=== PATIENT | female | born 1970 | race Caucasian/White ===

== ENCOUNTER 2019-03-09 16:48 | Emergency (ER) | payer BC, OTHER ==
[~2019-03-09] VITALS: Ht 165.1 cm; Wt 63.5 kg
[~2019-03-09 16:48] MED LIST: ALPR1TAB2 PO; HYDR-1179 PO
--- NOTE | 2019-03-09 17:12 | PHYS DOC ---
Past History Past Medical History: No Pertinent History Past Surgical History: Other Smoking: Quit Greater Than 1 Year Alcohol Use: Occasionally Drug Use: None Adult General Chief Complaint Chief Complaint: COUGH HPI HPI Patient is a 48-year-old female who presented to ER today for evaluation of productive cough with yellow sputum for about 3 days. She also complaint of fever and chill. Patient had NO trouble breathing. Patient IS patient is not a smoker. She had Coughing so much that she could not sleep last night. Patient denies any abdominal pain, no nausea vomiting. aLL OTHER ros IS NEGATIVE UNLESS OTHERWISE NOTED IN hpi Review of Systems Review of Systems See above Allergies Allergies Allergies Coded Allergies Type Severity Reaction Last Updated Verified adhesive Allergy Intermediate 10/04/14 Yes sulfamethoxazole Allergy Intermediate Hives 10/04/14 Yes trimethoprim Allergy Intermediate Hives 10/04/14 Yes Physical Exam Physical Exam See above Constitutional: Well developed, well nourished, no acute distress, non-toxic appearance. [] HENT: Normocephalic, atraumatic, bilateral external ears normal, oropharynx moist, no oral exudates, nose normal. [] Eyes: PERRLA, EOMI, conjunctiva normal, no discharge. [] Neck: Normal range of motion, no tenderness, supple, no stridor. [] Cardiovascular:Heart rate regular rhythm, no murmur [] Lungs & Thorax: Bilateral breath sounds clear to auscultation [] Abdomen: Bowel sounds normal, soft, no tenderness, no masses, no pulsatile masses. [] Skin: Warm, dry, no erythema, no rash. [] Back: No tenderness, no CVA tenderness. [] Extremities: No tenderness, no cyanosis, no clubbing, ROM intact, no edema. [] Neurologic: Alert and oriented X 3, normal motor function, normal sensory function, no focal deficits noted. [] Psychologic: Affect normal, judgement normal, mood normal. [] EKG EKG [] Radiology/Procedures Radiology/Procedures [][address] [address] IMAGING REPORT Signed PATIENT: HARRISON COOK ACCOUNT: [id number] : 1970 LOCATION: ER AGE: 48 SEX: F EXAM STATUS: REG ER ORD. PHYSICIAN: MONSE DOUGHERTY DO REASON: COUGH FOR 3 DAYS PROCEDURE: CHEST PA & LATERAL Chest radiograph 03/09/2019 5:06 PM INDICATION: Cough for 3 days COMPARISON: 10/04/2014 TECHNIQUE: Frontal and lateral views of the chest are provided. FINDINGS: The cardiomediastinal silhouette is within normal limits. There are no pleural effusions. There is no pulmonary vascular congestion. There is no pneumothorax. The lungs are clear. No significant osseous abnormality is identified. IMPRESSION: No acute cardiopulmonary process. Electronically signed by: Klever Aparicio MD (03/09/2019 5:20 PM) [id number] DICTATED AND SIGNED BY: KLEVER APARICIO MD DATE: 03/09/191719 CC: MONSE DOUGHERTY DO; LORENA LOYA MD ~ Course & Med Decision Making Course & Med Decision Making Pertinent Labs and Imaging studies reviewed. (See chart for details) [] Dragon Disclaimer Dragon Disclaimer This electronic medical record was generated, in whole or in part, using a voice recognition dictation system. Departure Departure: Impression: Primary Impression: Acute bronchitis Disposition: HOME, SELF-CARE Condition: STABLE Referrals: LORENA LOYA MD (PCP) please follow up with your doctor on Wednesday for reevaluation. Patient Instructions: Acute Bronchitis Scripts Albuterol Sulfate (PROAIR HFA INHALER) 8.5 Gm Hfa.aer.ad 2 PUFF IH PRN Q4-6HRS PRN for wheezing for 21 Days, #1 INHALER 0 Refills Prov: MONSE DOUGHERTY DO 03/09/19 Azithromycin (ZITHROMAX) 250 Mg Tablet 1 PKG PO UD for bronchitis, #6 TAB Prov: MONSE DOUGHERTY DO 03/09/19 Promethazine HCl/Codeine (Prometh-Codein 6.25-10 mg/5 ml) 5 Ml Syrup 5 ML PO PRN Q4-6HRS PRN for cough MDD 30 Milliliter(s), #120 ML 0 Refills Prov: MONSE DOUGHERTY DO 03/09/19 Prednisone (PREDNISONE) 20 Mg Tablet 1 TAB PO DAILY for bronchitis for 10 Days, #10 TAB Prov: MONSE DOUGHERTY DO 03/09/19 MONSE DOUGHERTY DO Mar 09, 2019 17:12
--- NOTE | 2019-03-09 17:23 | RAD ---
Chest radiograph 03/09/2019 5:06 PM INDICATION: Cough for 3 days COMPARISON: 10/04/2014 TECHNIQUE: Frontal and lateral views of the chest are provided. FINDINGS: The cardiomediastinal silhouette is within normal limits. There are no pleural effusions. There is no pulmonary vascular congestion. There is no pneumothorax. The lungs are clear. No significant osseous abnormality is identified. IMPRESSION: No acute cardiopulmonary process. Electronically signed by: Tyesha Nick MD (03/09/2019 5:20 PM) [id number]
[2019-03-09] MEDS ORDERED: methylPREDNISolone SOD SUCC PF 125 MG/2 ML VIAL. IM ONE (17:45)
[2019-03-09] MEDS ORDERED: ONDANSETRON ODT 4 MG TAB.RAPDIS PO ONE (17:45)
[2019-03-09] MEDS ORDERED: HYDROcodone/APAP 5/325MG 1 TAB TABLET PO ONE (17:45)
[2019-03-09] MEDS ORDERED: IPRATRPIUM/ALBUTEROL 0.5/2.5MG 3 ML NEBU. NEB ONE (17:45)
[2019-03-09] MEDS ORDERED: PRED20TA PO (17:55)
[2019-03-09] MEDS ORDERED: AZIT250T PO (17:55)
[2019-03-09] MEDS ORDERED: PROM5SYR2 PO (17:55)
[2019-03-09] MEDS ORDERED: ALBU2.5V8 IH (17:55)
[2019-03-09 18:17] VITALS: BP 128/68
== END 2019-03-09 18:17 | disposition home or self-care (01) ==
LOC: ER 16:48
DX: J20.9 Acute bronchitis, unspecified (principal); Z87.891 Personal history of nicotine dependence; Z88.8 Allergy status to other drugs, medicaments and biological substances; Z88.1 Allergy status to other antibiotic agents; Z88.2 Allergy status to sulfonamides
CPT/HCPCS: 71046; 94640; 96372; 99284; J2930; J7620; Q0162

== ENCOUNTER 2019-04-07 17:58 | Emergency (ER) | payer OTHER, BC ==
[~2019-04-07] VITALS: Ht 165.1 cm; Wt 80.0 kg
[~2019-04-07 17:58] MED LIST changes: +ALBU2.5V8 IH; +AZIT250T PO; +PRED20TA PO; +PROM5SYR2 PO
[2019-04-07] MEDS ORDERED: HYDROcodone/APAP 5/325MG 1 TAB TABLET PO ONE (18:45)
--- NOTE | 2019-04-07 18:46 | RAD ---
EXAM: Sacrum coccyx DATE: 04/07/2019 6:12 PM COMPARISON: No prior INDICATION: Pain s/p fall FINDINGS: Dedicated AP and lateral views of the sacrum/coccyx are negative for acute or subacute fracture. Negative sacro-coccygeal dissociation. Negative SI joint diastasis or degenerative/proliferative changes. Grossly normal bone density. IMPRESSION: Normal dedicated views sacrum and coccyx. Electronically signed by: Omid Paula MD (04/07/2019 6:43 PM) [facility]
[2019-04-07 18:51] VITALS: BP 134/87
[2019-04-07] MEDS ORDERED: HYDR-3165 PO (18:52)
--- NOTE | 2019-04-07 18:52 | PHYS DOC ---
Past History Past Medical History: Anxiety, Depression, Other Additional Past Medical Histor: BACK PROBLEMS Past Surgical History: Other Additional Past Surgical Histo: ABLATION, UTERUS SECONDARY TO INVERSION Smoking: Quit Greater Than 1 Year Additional Smoking Information: VAPES Alcohol Use: Occasionally Drug Use: None Adult General Chief Complaint Chief Complaint: MECHANICAL FALL HPI HPI Patient is a 48 year old female who presents with complaint of tailbone pain. The patient states this morning she had an accidental fall after slipping on ice. She states that she fell back onto a concrete surface directly onto her bottom and the left elbow. States that she is having moderate to severe pain in the tailbone area since the fall. States that the pain worsens when trying to sit. Has taken [id number] medication with no significant improvement symptoms. Is concerned that she may have broken her tailbone and thus came to the emergency department for further evaluation. Patient states that she has mild tenderness to the left elbow but is able to move it normally and does not feel that she has caused any significant injury. She is most concerned about the tailbone area. Denies any numbness or weakness in the lower extremities or saddle last seizure. No loss of bowel or bladder control. She denies any pain above the tailbone area within her spine. Review of Systems Review of Systems Constitutional: Denies fever or chills [] Eyes: Denies change in visual acuity, redness, or eye pain [] HENT: Denies nasal congestion or sore throat [] Respiratory: Denies cough or shortness of breath [] Cardiovascular: Denies chest pain or edema[] GI: Denies abdominal pain, nausea, vomiting, bloody stools or diarrhea [] : Denies dysuria or hematuria [] Musculoskeletal: Tailbone pain, left elbow pain[] Integument: Denies rash or skin lesions [] Neurologic: Denies headache, focal weakness or sensory changes [] All other systems were reviewed and found to be within normal limits, except as documented in this note. Current Medications Current Medications Current Medications Medications (Trade) Dose Ordered Sig/Marshal Start Time Stop Time Status Last Admin Dose Admin Acetaminophen/ Hydrocodone Bitart (Lortab 5/325) 1 tab 1X ONCE 04/07/19 18:45 04/07/19 18:47 DC 04/07/19 18:46 1 TAB Allergies Allergies Allergies Coded Allergies Type Severity Reaction Last Updated Verified adhesive Allergy Intermediate 04/07/19 Yes sulfamethoxazole Allergy Intermediate Hives 04/07/19 Yes trimethoprim Allergy Intermediate Hives 04/07/19 Yes Physical Exam Physical Exam Constitutional: Alert, afebrile, appears in moderate discomfort. [] HENT: Normocephalic, atraumatic, bilateral external ears normal, oropharynx moist, no oral exudates, nose normal. [] Eyes: PERRLA, EOMI, conjunctiva normal, no discharge. [] Neck: Normal range of motion, no tenderness, supple, no stridor. [] Cardiovascular:Heart rate regular rhythm, no murmur [] Lungs & Thorax: Bilateral breath sounds clear to auscultation [] Abdomen: Bowel sounds normal, soft, no tenderness, no masses, no pulsatile masses. [] Skin: Warm, dry, no erythema, no rash. [] Back: No midline cervical, thoracic, or lumbar tenderness, there is midline tenderness over the coccyx and distal sacrum, mild left lower lumbar paraspinous muscle tenderness to palpation with no operable spasm. [] Extremities: No tenderness, no cyanosis, abrasion overlying posterior left elbow, no clubbing, ROM intact, no edema. [] Neurologic: Alert and oriented X 3, normal motor function, normal sensory fu nction, no focal deficits noted. [] Current Patient Data Vital Signs Vital Signs Date Time Temp Pulse Resp B/P (MAP) Pulse Ox O2 Delivery O2 Flow Rate FiO2 04/07/19 18:46 20 04/07/19 18:05 98.4 112 135/82 (99) 97 Room Air Lab Results Not performed EKG EKG Not performed[] Radiology/Procedures Radiology/Procedures [address] [address] IMAGING REPORT Signed PATIENT: HARRISON COOK ACCOUNT: [id number] : 1970 LOCATION: ER AGE: 48 SEX: F EXAM STATUS: PRE ER ORD. PHYSICIAN: MANNIE AKINS MD REASON: fall, sacral and tailbone pain PROCEDURE: SACRUM & COCCYX 3V EXAM: Sacrum coccyx DATE: 04/07/2019 6:12 PM COMPARISON: No prior INDICATION: Pain s/p fall FINDINGS: Dedicated AP and lateral views of the sacrum/coccyx are negative for acute or subacute fracture. Negative sacro-coccygeal dissociation. Negative SI joint diastasis or degenerative/proliferative changes. Grossly normal bone density. IMPRESSION: Normal dedicated views sacrum and coccyx. Electronically signed by: Omid Sharpe MD (04/07/2019 6:43 PM) [facility] DICTATED AND SIGNED BY: OMID SHARPE MD DATE: 04/07/19 648 CC: MANNIE AKINS MD; LORENA LOYA MD ~ [] Course & Med Decision Making Course & Med Decision Making Pertinent Labs and Imaging studies reviewed. (See chart for details) X-rays negative for fracture. Examination and findings are consistent with coccygeal contusion. Treated with [place] in the emergency department. Patient provided with additional 4 days of [place] by prescription for treatment of pain symptoms. Advised use of donut cushion and other measures to take direct pressure off of the coccygeal area to help reduce pain symptoms. Recommended follow-up with primary doctor in 5 days for reevaluation and return to the emergency department for any worsening symptoms. Patient was understanding and in agreement with treatment plan.[] Dragon Disclaimer Dragon Disclaimer This electronic medical record was generated, in whole or in part, using a voice recognition dictation system. Departure Departure: Impression: Primary Impression: Contusion of coccyx Disposition: HOME, SELF-CARE Condition: STABLE Referrals: LORENA LOYA MD (PCP) Patient Instructions: Tailbone Injury Additional Instructions: Follow-up with your primary doctor in 5 days for reevaluation. Return to the emergency department for any worsening symptoms. Scripts Hydrocodone Bit/Acetaminophen (NORCO 5-325 TABLET) 1 Each Tablet 1 TAB PO Q6HRS PRN for PAIN for 4 Days, #16 TAB Prov: MANNIE AKINS MD 04/07/19 Problem Qualifiers Primary Impression: Contusion of coccyx Encounter type: initial encounter Qualified Codes: S30.0XXA - Contusion of lower back and pelvis, initial encounter MANNIE AKINS MD Apr 07, 2019 18:52
== END 2019-04-07 18:58 | disposition home or self-care (01) ==
LOC: ER 17:58
DX: S30.0XXA Contusion of lower back and pelvis, initial encounter (principal); F41.9 Anxiety disorder, unspecified; F32.9 Major depressive disorder, single episode, unspecified; Z87.891 Personal history of nicotine dependence; W00.0XXA Fall on same level due to ice and snow, initial encounter; Y93.89 Activity, other specified; Y92.89 Other specified places as the place of occurrence of the external cause; Y99.8 Other external cause status
CPT/HCPCS: 72220; 99284

== ENCOUNTER 2020-05-23 22:50 | Emergency (ER) | payer BC, OTHER ==
[~2020-05-23] VITALS: Ht 165.1 cm; Wt 72.7 kg
[~2020-05-23 22:50] MED LIST changes: +HYDR-3165 PO
[2020-05-23 22:52] VITALS: BP 121/76
[2020-05-23] MEDS ORDERED: LIDOCAINE/EPI/TETRACAINE TOPICAL GEL 3 ML. TP ONE (23:00)
--- NOTE | 2020-05-23 23:01 | PHYS DOC ---
Past History Past Medical History: Anxiety, Depression, Other Additional Past Medical Histor: BACK PROBLEMS Past Surgical History: Other Additional Past Surgical Histo: ABLATION, UTERUS SECONDARY TO INVERSION Smoking: Quit Greater Than 1 Year Alcohol Use: Occasionally Drug Use: None Adult General HPI HPI Patient is a 49-year-old female who presents with lacerations to the left first and second digits. States she was at home cooking dinner, cutting cucumbers when the knife slipped and cut her two fingers. States she is not up-to-date on her tetanus vaccinations. States she is otherwise healthy and has no other injuries or complaints. Review of Systems Review of Systems Review of systems otherwise unremarkable except noted in HPI Current Medications Current Medications Current Medications Medications (Trade) Dose Ordered Sig/Marshal Start Time Stop Time Status Last Admin Dose Admin Lidocaine/ Epinephrine (Let (Lypv-Zlfssge-Xrhvc) Gel) 3 ml 1X ONCE 05/23/20 23:00 05/23/20 23:01 UNV Allergies Allergies Allergies Coded Allergies Type Severity Reaction Last Updated Verified adhesive Allergy Intermediate 04/07/19 Yes sulfamethoxazole Allergy Intermediate Hives 04/07/19 Yes trimethoprim Allergy Intermediate Hives 04/07/19 Yes Physical Exam Physical Exam Constitutional: Well developed, well nourished, no acute distress, non-toxic appearance. [] HENT: Normocephalic, atraumatic, bilateral external ears normal, oropharynx moist, no oral exudates, nose normal. [] Eyes: PERRLA, EOMI, conjunctiva normal, no discharge. [] Neck: Normal range of motion, no tenderness, supple, no stridor. [] Extremities: Neurologic: Alert and oriented X 3, normal motor function, normal sensory function, no focal deficits noted. [] Psychologic: Affect normal, judgement normal, mood normal. [] EKG EKG [] Radiology/Procedures Radiology/Procedures [] Heart Score C/O Chest Pain: No Risk Factors: Risk Factors: DM, Current or recent (<one month) smoker, HTN, HLP, family history of CAD, obesity. Risk Scores: Risk Factors: DM, Current or recent (<one month) smoker, HTN, HLP, family history of CAD, obesity. Course & Med Decision Making Course & Med Decision Making Patient is a 49-year-old female who presents with lacerations to her left first and second digits that happened at home while cutting cucumbers with a knife Vital signs not concerning. Physical exam noted above. Patient's wounds cleaned extensively with sterile water. L ET placed for topical anesthesia. Updated tetanus vaccination. [] No need for suture repair. Patient allergic to Band-Aid tape of all kinds. Dermabond placed. Gave wound care instructions. Advised to follow-up with primary care as needed. Gave strict return precautions to the ED. Patient grateful, verbalized understanding and agreed with plan of discharge. Dragon Disclaimer Dragon Disclaimer This electronic medical record was generated, in whole or in part, using a voice recognition dictation system. Departure Departure: Impression: Primary Impression: Finger laceration Additional Impression: Thumb laceration Disposition: 01 DC HOME SELF CARE/HOMELESS Condition: GOOD Referrals: LORENA LOYA MD (PCP) Patient Instructions: Tissue Adhesive Wound Care, [id number] Additional Instructions: Please read all the attached information. You can use Tylenol, and ibuprofen at home as needed for pain control. Please keep the wounds clean, dry and bandaged. Please follow-up with your primary care physician Please come back to the emergency department immediately with any new or concerning symptoms as discussed. Problem Qualifiers PAULO BANEGAS MD May 23, 2020 23:00
[2020-05-23] MEDS ORDERED: DIPH,PERTUSS(ACELL),TET VAC/PF 0.5 ML SYRINGE. VAX IM ONE (23:30)
== END 2020-05-23 23:35 | disposition home or self-care (01) ==
LOC: ER 22:50
DX: S61.211A Laceration without foreign body of left index finger without damage to nail, initial encounter (principal); S61.012A Laceration without foreign body of left thumb without damage to nail, initial encounter; Z87.891 Personal history of nicotine dependence; Z88.2 Allergy status to sulfonamides; Z88.1 Allergy status to other antibiotic agents; Z88.8 Allergy status to other drugs, medicaments and biological substances; W26.0XXA Contact with knife, initial encounter; Y93.89 Activity, other specified; Y92.89 Other specified places as the place of occurrence of the external cause; Y99.8 Other external cause status
CPT/HCPCS: 12001; 90471; 90715; 99283

== ENCOUNTER 2021-05-15 22:26 | Emergency (ER) | payer SELFPAY ==
--- NOTE | 2021-05-15 22:35 | PHYS DOC ---
Past History Past Medical History: Anxiety, Depression, Other Additional Past Medical Histor: BACK PROBLEMS Past Surgical History: Other Additional Past Surgical Histo: ABLATION, UTERUS SECONDARY TO INVERSION Smoking: Quit Greater Than 1 Year Alcohol Use: Occasionally Drug Use: None General Adult HPI: HPI: Patient is a 50 year old female who presents with above hx and complaints Rt. index finger laceration. Pt. left after in waiting room. Pt. Let without being seen. Review of Systems: Review of Systems: Complaints in index finger lacertion- per check in Allergies: Allergies: Allergies Coded Allergies Type Severity Reaction Last Updated Verified adhesive Allergy Intermediate 04/07/19 Yes sulfamethoxazole Allergy Intermediate Hives 04/07/19 Yes trimethoprim Allergy Intermediate Hives 04/07/19 Yes Physical Exam: PE: Left before being seen EKG: EKG: [] Radiology/Procedures: Radiology/Procedures: [] Heart Score: C/O Chest Pain: N/A Risk Factors: Risk Factors: DM, Current or recent (<one month) smoker, HTN, HLP, family history of CAD, obesity. Risk Scores: Score 0 - 3: 2.5% MACE over next 6 weeks - Discharge Home Score 4 - 6: 20.3% MACE over next 6 weeks - Admit for Clinical Observation Score 7 - 10: 72.7% MACE over next 6 weeks - Early Invasive Strategies Course & Med Decision Making: Course & Med Decision Making Pertinent Labs and Imaging studies reviewed. (See chart for details) Patient left from the waiting room before being placed in a room. [] Dragon Disclaimer: Dragon Disclaimer: This electronic medical record was generated, in whole or in part, using a voice recognition dictation system. Departure Departure: Referrals: LORENA LOYA MD (PCP) Obed Disclaimer This chart was dictated in whole or in part using Voice Recognition software in a busy, high-work load, and often noisy Emergency Department environment. It may contain unintended and wholly unrecognized errors or omissions. FLY INGRAM MD May 15, 2021 22:35
== END 2021-05-15 23:00 | disposition left against medical advice (07) ==
LOC: ER 22:26
DX: S61.210A Laceration without foreign body of right index finger without damage to nail, initial encounter (principal); Z87.891 Personal history of nicotine dependence; Z53.21 Procedure and treatment not carried out due to patient leaving prior to being seen by health care provider; Z88.8 Allergy status to other drugs, medicaments and biological substances; Z88.2 Allergy status to sulfonamides; Z88.1 Allergy status to other antibiotic agents; X58.XXXA Exposure to other specified factors, initial encounter; Y93.89 Activity, other specified; Y92.89 Other specified places as the place of occurrence of the external cause; Y99.8 Other external cause status